=== PATIENT | male | born 1950 | race Hispanic/Latino ===

== ENCOUNTER → 2017-05-29 | Outpatient (CLI) | payer OTHER, MEDICARE ==
[~2017-05-29] MED LIST: AMLO2.5T PO; DULO30CA51 PO; GABA-318 PO; GABA300S PO; IOPAMIDOL-370 100 ML VIAL IV ONE; IOPAMIDOL-370 75 ML VIAL IV ONE; LOSA50TA37 PO; METF500T6 PO
== END | disposition home or self-care (01) ==
LOC: SHCH 07:44
PROVIDERS: ATTEND Internal Medicine Cardiovascular Disease
DX: I70.702 Unspecified atherosclerosis of other type of bypass graft(s) of the extremities, left leg (principal)
CPT/HCPCS: 75635; Q9967 ×2

== ENCOUNTER → 2017-06-11 | Outpatient (CLI) | payer OTHER, MEDICARE ==
[~2017-06-11] MED LIST changes: -IOPAMIDOL-370 100 ML VIAL IV ONE; -IOPAMIDOL-370 75 ML VIAL IV ONE
== END | disposition home or self-care (01) ==
LOC: SHCH 11:32
PROVIDERS: ATTEND Internal Medicine Cardiovascular Disease
DX: G45.8 Other transient cerebral ischemic attacks and related syndromes (principal); R09.89 Other specified symptoms and signs involving the circulatory and respiratory systems
CPT/HCPCS: 93880

== ENCOUNTER → 2017-07-30 | Outpatient (CLI) | payer OTHER, MEDICARE ==
[~2017-07-30] MED LIST changes: +IOPAMIDOL-370 75 ML VIAL IV ONE
== END | disposition home or self-care (01) ==
LOC: RAH 08:23
PROVIDERS: ATTEND Internal Medicine Cardiovascular Disease
DX: I65.23 Occlusion and stenosis of bilateral carotid arteries (principal)
CPT/HCPCS: 70498; Q9967

== ENCOUNTER → 2017-08-21 | Outpatient (CLI) | payer OTHER, MEDICARE ==
[~2017-08-21] VITALS: Ht 160 cm; Wt 72.6 kg
[~2017-08-21] MED LIST changes: -IOPAMIDOL-370 75 ML VIAL IV ONE; +REGADENOSON 0.4 MG/5 ML PF SYG IVP SCH
== END | disposition home or self-care (01) ==
LOC: SHCH 09:24
PROVIDERS: ATTEND Internal Medicine Cardiovascular Disease
DX: I25.10 Atherosclerotic heart disease of native coronary artery without angina pectoris (principal)
CPT/HCPCS: 78452; 93017; 96374; A9500 ×2; J2785

== ENCOUNTER → 2018-10-26 | Outpatient (CLI) | payer OTHER ==
[~2018-10-26] MED LIST changes: -AMLO2.5T PO; +AMLO2.5T4 PO; -DULO30CA51 PO; +DULO30CA52 PO; -GABA-318 PO; +GABA600T10 PO; -LOSA50TA37 PO; +LOSA50TA64 PO; +METF-444 PO; -METF500T6 PO; -REGADENOSON 0.4 MG/5 ML PF SYG IVP SCH
== END | disposition home or self-care (01) ==
LOC: SHCH 13:58 → MERGE 14:00
PROVIDERS: ATTEND Internal Medicine Cardiovascular Disease
DX: I65.23 Occlusion and stenosis of bilateral carotid arteries (principal); I11.9 Hypertensive heart disease without heart failure; R09.89 Other specified symptoms and signs involving the circulatory and respiratory systems
CPT/HCPCS: 93306; 93880

== ENCOUNTER → 2018-11-30 | Outpatient (CLI) | payer OTHER ==
[~2018-11-30] VITALS: Ht 162.6 cm; Wt 72.1 kg
[~2018-11-30] MED LIST changes: +REGADENOSON 0.4 MG/5 ML PF SYG IVP SCH
== END | disposition home or self-care (01) ==
LOC: SHCH 08:20
PROVIDERS: ATTEND Internal Medicine Cardiovascular Disease
DX: I10 Essential (primary) hypertension (principal); I25.89 Other forms of chronic ischemic heart disease; E78.5 Hyperlipidemia, unspecified; E11.9 Type 2 diabetes mellitus without complications; Z79.899 Other long term (current) drug therapy; I65.23 Occlusion and stenosis of bilateral carotid arteries
CPT/HCPCS: 78452; 93017; 96374; A9500 ×2; J2785

== ENCOUNTER 2018-12-08 15:00 | Observation (INO) | payer OTHER, MEDICARE ==
[~2018-12-08] VITALS: Ht 165.1 cm; Wt 72.4 kg
[~2018-12-08 15:00] MED LIST changes: -AMLO2.5T4 PO; -DULO30CA52 PO; -GABA300S PO; -GABA600T10 PO; -METF-444 PO; -REGADENOSON 0.4 MG/5 ML PF SYG IVP SCH
[2019-01-01] MEDS ORDERED: METF-446 PO (14:54)
[2019-01-01] MEDS ORDERED: PREG100C PO (14:56)
--- NOTE | 2019-01-04 12:54 | NUR ---
CALLED [facility] JACOBO AND REPORTED BUN 35, CHIEF TECHNOLOGIST 1.9, WBC 12.2, UA RESULTS WITH PROTEIN >300, RBC 2-5, WBC 2-5, FEW BACTERIA. NEW ORDERS FOR NS AT 125CC AND HOUR AND REPEAT BMP IN AM.
[2019-01-04] MEDS ORDERED: SODIUM CHLORIDE 0.9% 1000ML 1,000 ML IV SCH (13:00)
[2019-01-05 08:22] LABS: CREATININE 1.9 mg/dL (0.5-1.5); POTASSIUM 4.8 mmol/L (3.5-5.1)
[2019-01-05] MEDS ORDERED: FERR325T22 PO (10:19)
[2019-01-26 15:49] VITALS: BP 168/68
[2019-01-26 16:05] LABS: BASOPHILS % (AUTO) 0.5 % (0.0-5.0); HEMATOCRIT 35.7 % (42-54); LYMPHOCYTES % (AUTO) 30.6 % (21.0-51.0); MEAN CORPUSCULAR HEMOGLOBIN 28.9 pg (27.0-33.0); MEAN CORPUSCULAR HGB CONC 33.2 g/dL (32.0-36.0); MONOCYTES % (AUTO) 6.8 % (3.0-13.0); NEUTROPHILS % (AUTO) 59.1 % (40.0-77.0); NUCLEATED RED BLOOD CELLS 0.1 % (0.0-0.19); PLATELET COUNT (AUTO) 187 K/uL (130-400)
[2019-01-26 16:12] LABS: CREATININE 1.7 mg/dL (0.5-1.5); POTASSIUM 4.8 mmol/L (3.5-5.1)
[2019-01-26 16:13] LABS: APPEARANCE,URINE Clear (CLEAR); BILIRUBIN,URINE Negative (NEGATIVE); COLOR,URINE Yellow (YELLOW); GLUCOSE, URINE (UA) Negative (NEGATIVE); KETONES,URINE Negative (NEGATIVE); LEUKOCYTE ESTERASE ,URINE Negative (NEGATIVE); NITRATE,URINE Negative (NEGATIVE); OCCULT BLOOD,URINE Negative (NEGATIVE); PH,URINE 5.5 (5.0-8.0); PROTEIN,URINE 300 mg/dL (NEGATIVE); UROBILINOGEN,URINE 0.2 mg/dL (0.2-1.0)
[2019-01-26 16:13] LABS: INR 0.95 (0.85-1.15)
[2019-01-26 16:35] LABS: BACTERIA,URINE None Seen /HPF (None Seen); MUCUS,URINE Rare LPF (None Seen); RBC,URINE 0-1 /HPF (0-1); SQUAMOUS EPITHELIAL CELL,UR 0-2 /HPF (0-2); WBC,URINE 0-1 /HPF (0-1)
--- NOTE | 2019-01-26 17:30 | NUR ---
ABNORMAL LABS ABNORMAL LABS REPORTED TO DR. WU BUN 29, CREAT 1.7, H/H 11.8/35.7. NO FURTHER ORDERS GIVEN, MAY PROCEED WITH PLANNED PROCEDURE.
[2019-01-27] VITALS (21 sets, daily range): BP systolic 144–205; BP diastolic 65–88
[2019-01-27] MEDS ORDERED: SODIUM CHLORIDE 0.9% 1000ML 1,000 ML IV ONE (07:40)
[2019-01-27] MEDS ORDERED: CEFAZOLIN SODIUM 1 GM VIAL IVP ONE (08:00)
[2019-01-27] MEDS ORDERED: METOCLOPRAMIDE 10 MG/2 ML VIAL ONE (08:43)
[2019-01-27] MEDS ORDERED: CELECOXIB 200 MG CAP ONE (08:43)
[2019-01-27] MEDS ORDERED: ACETAMINOPHEN EXTRA STRENGTH 500 MG TABLET ONE (08:43)
[2019-01-27] MEDS ORDERED: OXYCODONE HCL 10 MG TAB.SR.12H PO ONE (08:44)
[2019-01-27] MEDS ORDERED: DEXAMETHASONE SOD PHOSPHATE 4 MG/ML 5ML VIAL ONE (08:44)
[2019-01-27] MEDS ORDERED: CEFAZOLIN SODIUM 1 GM VIAL ONE (09:30)
[2019-01-27] MEDS ORDERED: TRANEXAMIC ACID 1000MG/10ML IV ONE (09:30)
[2019-01-27] MEDS ORDERED: ROPIVACAINE 0.5% 5MG/ML 30ML IJ ONE (09:41)
[2019-01-27] MEDS ORDERED: TEMAZEPAM 15 MG CAPSULE PO PRN (12:30)
[2019-01-27] MEDS ORDERED: ONDANSETRON HCL 4 MG/2 ML VIAL IVP PRN (12:30)
[2019-01-27] MEDS ORDERED: POTASSIUM CHLORIDE 20 MEQ ERTAB PO PRN (12:30)
[2019-01-27] MEDS ORDERED: DiphenhydrAMINE HCL 50 MG/ML VIAL IVP PRN (12:30)
[2019-01-27] MEDS ORDERED: POTASSIUM CHLORIDE 20MEQ/100ML 100 ML IV PRN (12:30)
[2019-01-27] MEDS ORDERED: LIDOCAINE HCL-MPF 1% 2ML VIAL IV PRN (12:30)
[2019-01-27] MEDS ORDERED: TRAMADOL HCL 50 MG TABLET PO PRN (12:30)
[2019-01-27] MEDS ORDERED: CALCIUM CARBONATE 500 MG TABLET PO PRN (12:30)
[2019-01-27] MEDS: ACETAMINOPHEN EXTRA STRENGTH 500 MG TABLET PO SCH ×2 (12:30→20:55)
[2019-01-27] MEDS ORDERED: POTASSIUM CHLORIDE 10% ELIXIR 20 MEQ/15 ML UDCUP PO PRN (12:30)
[2019-01-27] MEDS ORDERED: OXYCODONE HCL 5 MG TAB PO PRN (12:30)
[2019-01-27] MEDS ORDERED: HYDRALAZINE HCL 20 MG/ML VIAL ONE (13:10)
[2019-01-27] MEDS ORDERED: MEPERIDINE-PF 25 MG/ML SYG ONE (13:25)
--- NOTE | 2019-01-27 13:40 | NUR ---
TRANEXAMIC ACID 1GM IVBP GIVEN IN PACU. Addendum: 01/27/19 at 1341 by JORGE GUSMAN RN RN Amended: Links added.
[2019-01-27] MEDS: CEFAZOLIN SODIUM 1 GM VIAL IVP SCH (18:12)
[2019-01-27] MEDS: SODIUM CHLORIDE 0.9% 1000ML 1,000 ML IV SCH ×2 (18:15→22:04)
[2019-01-27] MEDS: INSULIN HUMULIN R 100 UNIT/ML 3ML SQ SCH ×2 (18:17→20:54)
[2019-01-27] MEDS: FAMOTIDINE 20MG TAB 20 MG TAB PO SCH (20:53)
[2019-01-27] MEDS: CELECOXIB 200 MG CAP PO SCH (20:54)
[2019-01-27] MEDS: ASPIRIN 81MG TAB.CHEW PO SCH (20:54)
[2019-01-27] MEDS: PREGABALIN 100 MG CAPSULE PO SCH (20:54)
[2019-01-27] MEDS ORDERED: PREGABALIN 25 MG CAP PO SCH (21:00)
[2019-01-28] VITALS: BP 163/75
[2019-01-28] MEDS: CEFAZOLIN SODIUM 1 GM VIAL IVP SCH (02:21)
[2019-01-28 04:00] VITALS: BP 159/69
[2019-01-28] MEDS: ACETAMINOPHEN EXTRA STRENGTH 500 MG TABLET PO SCH ×2 (04:45→12:47)
[2019-01-28 04:55] LABS: CREATININE 1.8 mg/dL (0.5-1.5); POTASSIUM 4.8 mmol/L (3.5-5.1)
[2019-01-28] MEDS: INSULIN HUMULIN R 100 UNIT/ML 3ML SQ SCH ×2 (05:48→11:30)
[2019-01-28] MEDS: SODIUM CHLORIDE 0.9% 1000ML 1,000 ML IV SCH (05:48)
[2019-01-28 08:00] VITALS: BP 167/76
[2019-01-28] MEDS: FAMOTIDINE 20MG TAB 20 MG TAB PO SCH (08:47)
[2019-01-28] MEDS: PREGABALIN 100 MG CAPSULE PO SCH (08:47)
[2019-01-28] MEDS: ASPIRIN 81MG TAB.CHEW PO SCH (08:48)
[2019-01-28] MEDS: CELECOXIB 200 MG CAP PO SCH (08:48)
[2019-01-28] MEDS: OXYCODONE HCL 5 MG TAB PO PRN ×3 (08:49→18:42)
[2019-01-28] MEDS ORDERED: METFORMIN HCL 500 MG TAB.SR.24H PO SCH (09:00)
[2019-01-28] MEDS ORDERED: LOSARTAN 100 MG TABLET PO SCH (09:00)
[2019-01-28] MEDS ORDERED: POLYETHYLENE GLYCOL 3350 17 GM POWD.PACK PO SCH (09:00)
[2019-01-28] MEDS ORDERED: FERROUS SULFATE 325 MG TABLET.DR PO SCH (09:00)
[2019-01-28] MEDS ORDERED: TAMSULOSIN HCL 0.4 MG CAP.ER.24H PO SCH (09:00)
--- NOTE | 2019-01-28 10:30 | NUR ---
INITIAL AND REFERRAL MET W PT AND SPOUSE MELLISA WHO LIVES W PT AND WILL PROVIDE TRANSPORT PREVIOUSLY INDP, NO DME, DRIVES, HOME SAFE AND ACCESSIBLE, S/P TKA, ORDER FOR HH AND DME- WKR 3 IN 1, VERBAL/MARYLU SIGNED FOR [facility], REFERRAL SENT Addendum: 01/29/19 at 1929 by CHRISTIANO JORGENSEN RN CM Amended: Links added.
[2019-01-28 11:50] VITALS: BP 171/75
[2019-01-28] MEDS ORDERED: HYDR-4457 PO (13:15)
[2019-01-28] MEDS ORDERED: ASPI-1005 PO (13:15)
--- NOTE | 2019-01-28 16:30 | NUR ---
REC;'D OK FROM [facility] AT 1315; CIERA WHITING TO PT ROOM, NO OTHER NEEDS, Addendum: 01/29/19 at 1931 by CHRISTIANO JORGENSEN RN CM Amended: Links added.
--- NOTE | 2019-01-28 18:35 | NUR ---
DISCHARGE DISCHARGE TEACHING DONE WITH PATIENT AND FAMILY USING TEACHBACK METHOD, VERBALIZED UNDERSTANDING. NO NOTED SOB OR DISTRESS. NEW MEDICATION ADMINISTRATION TEACHING DONE WITH PATIENT, VERBALIZED UNDERSTANDING. PT AWARE OF NEED TO ATTEND DR. WU APPOINTMENT. DRESSING TO KNEE DRY AND INTACT. DRESSING CHANGED PER DR. WU, INCISION IS DRY AND INTACT. DRESSING TEACHING DONE WITH PATIENT, VERBALIZED UNDERSTANDING. IV REMOVED, CATH TIP INTACT. PENDING TO BE TRANSFERRED OUT VIA PRIVATE VEHICLE. REPORT CALLED TO HOME HEALTH.
[2019-01-30] MEDS ORDERED: BISACODYL 10 MG SUPP.RECT RC PRN (12:30)
== END 2019-01-28 19:08 | disposition home or self-care (01) ==
LOC: INTOOBSV 01-27 07:11 → DAHIP 01-27 07:11 → 4AH 01-27 14:05
PROVIDERS: ADMIT Orthopaedic Surgery; ATTEND Orthopaedic Surgery
DX: M12.562 Traumatic arthropathy, left knee (principal); I10 Essential (primary) hypertension; E11.9 Type 2 diabetes mellitus without complications; E78.00 Pure hypercholesterolemia, unspecified; F17.210 Nicotine dependence, cigarettes, uncomplicated; Z96.698 Presence of other orthopedic joint implants; Z79.899 Other long term (current) drug therapy; Z79.01 Long term (current) use of anticoagulants
CPT/HCPCS: 20680; 27447; 36415 ×2; 73562; 80048 ×2; 81001; 82948 ×7; 85025; 85610; 87641; 88300; 88305; 88311; 96372; 96374; 96376 ×2; 97039; 97116 ×2; 97161; 97530 ×2; A4215; A4221; A4222; A4223; A4600; A4649 ×7; A4663; A4930 ×4; C1763; C1776; G0168; G0378 ×30; G8978; G8979; G8980; G8981; G8982; G8983; J0360; J0690 ×4; J1100; J1815; J2175; J2765; J2795; J3490; J7030 ×2

== ENCOUNTER 2019-01-05 07:27 | Day surgery (SDC) | payer OTHER, MEDICARE ==
[2019-01-01 14:10] LABS: BASOPHILS % (AUTO) 0.3 % (0.0-5.0); EOSINOPHILS % (AUTO) 2.2 % (0.0-8.0); HEMATOCRIT 36.3 % (42-54); LYMPHOCYTES % (AUTO) 31.2 % (21.0-51.0); MEAN CORPUSCULAR HEMOGLOBIN 28.2 pg (27.0-33.0); MEAN CORPUSCULAR VOLUME 85.4 fL (79-99); MONOCYTES % (AUTO) 6.4 % (3.0-13.0); NEUTROPHILS % (AUTO) 59.9 % (40.0-77.0); PLATELET COUNT (AUTO) 202 K/uL (130-400); RED BLOOD CELL COUNT(AUTO) 4.25 MIL/uL (4.50-6.20); RED CELL DISTRIBUTION WIDTH 20.6 % (11.0-15.5); WHITE BLOOD COUNT (AUTO) 12.2 K/uL (4.8-10.8)
[2019-01-01 14:12] LABS: APPEARANCE,URINE CLEAR (CLEAR); BILIRUBIN,URINE NEGATIVE (NEGATIVE); COLOR,URINE YELLOW (YELLOW); GLUCOSE, URINE (UA) NEGATIVE (NEGATIVE); KETONES,URINE NEGATIVE (NEGATIVE); LEUKOCYTE ESTERASE ,URINE NEGATIVE (NEGATIVE); NITRATE,URINE NEGATIVE (NEGATIVE); OCCULT BLOOD,URINE NEGATIVE (NEGATIVE); PH,URINE 5.5 (5.0-8.0); PROTEIN,URINE >=300 mg/dL (NEGATIVE); UROBILINOGEN,URINE 0.2 mg/dL (0.2-1.0)
[2019-01-01 14:22] LABS: CREATININE 1.9 mg/dL (0.5-1.5)
[2019-01-01 14:37] LABS: BACTERIA,URINE Few /HPF (None Seen); MUCUS,URINE Few LPF (None Seen)
[2019-01-01 15:18] VITALS: BP 140/69
[2019-01-01 15:26] LABS: INR 0.93 (0.85-1.15); PARTIAL THROMBOPLASTIN TIME 27.2 SEC (26.3-35.5); PROTHROMBIN TIME 9.8 SEC (9.6-11.6)
[~2019-01-05] VITALS: Ht 162.6 cm; Wt 72.0 kg
[2019-01-05] VITALS (17 sets, daily range): BP systolic 114–197; BP diastolic 48–83
[~2019-01-05 07:27] MED LIST changes: +AMLO2.5T4 PO; +METF-446 PO; +PREG100C PO; +SODIUM CHLORIDE 0.9% 500ML 500 ML IV SCH; +iron PO
--- NOTE | 2019-01-05 07:50 | NUR ---
PATIENT ARRIVED PATIENT ARRIVED TO DAY PATIENT WITH SPOUSE (MELLISA). PATIENT AAOX3, RESPIRATIONS UNLABORED, VITAL SIGNS STABLE. PROCEDURE VERIFIED AND CONFIRMED WITH PATIENT. HOSPITAL ROUTINE EXPLAINED TO PATIENT AND PATIENT'S SPOUSE, BOTH VERBALIZED UNDERSTANDING.
[2019-01-05] MEDS ORDERED: SODIUM CHLORIDE 0.9% 1000ML 1,000 ML IV ONE (09:08)
--- NOTE | 2019-01-05 09:50 | NUR ---
INFORMED DR BRENNAN REGARDING PATIENT'S BLOOD PRESSURE BEING IN THE 170S-190S. RECEIVED ORDERS FOR HYDRALAZINE 10MG IV PRN. WILL FOLLOW THROUGH WITH ORDERS AND ADMINISTER HYDRALAZINE NEEDED.
[2019-01-05] MEDS ORDERED: HYDRALAZINE HCL 20 MG/ML VIAL ONE ×3 (09:57→15:52)
--- NOTE | 2019-01-05 10:05 | NUR ---
ADMINISTERED HYDRALAZINE ADMINISTERED HYDRALAZINE 10MG IV PUSH FOR BP 197/81. (PATIENT ASYMPTOMATIC) WILL CONTINUE TO MONITOR FOR EFFECTIVENESS OF MEDICATION.
[2019-01-05] MEDS ORDERED: FERR325T22 PO (10:19)
[2019-01-05] MEDS ORDERED: DOCU100C33 PO (10:19)
[2019-01-05] MEDS ORDERED: AMLO5TAB9 PO (10:20)
[2019-01-05] MEDS ORDERED: HYDRALAZINE HCL 20 MG/ML VIAL IV PRN ×3 (11:30→16:00)
--- NOTE | 2019-01-05 12:50 | NUR ---
CALLED LAURA MCCARTHY INFORMED [facility] REGARDING PATIENT'S BLOOD PRESSURE NOT RESPONDING TO HYDRALAZINE 10MG THAT WAS ADMINISTERED AT 1005. PER [facility], GIVE PATIENT HYDRALAZINE 10MG IV PUSH X 1 DOSE NOW AND CALL HIM BACK IF PATIENT'S BP DOES NOT GO DOWN.
--- NOTE | 2019-01-05 13:10 | NUR ---
HYDRALAZINE 10MG IV PUSH GIVEN DUE TO BLOOD PRESSURE 195/79. WILL CONTINUE TO MONITOR PATIENT'S BLOOD PRESSURE FOR EFFECTIVENESS.
[2019-01-05] MEDS ORDERED: NITROGLYCERIN 5 MG/ML 10 ML VIAL IV ONE (14:05)
[2019-01-05] MEDS ORDERED: HEPARIN SODIUM 1000UNIT/ML 10ML VIAL ONE (14:05)
[2019-01-05] MEDS ORDERED: IOHEXOL 350 MG/ML 100ML INFUS..BTL IV ONE (14:05)
[2019-01-05] MEDS ORDERED: LIDOCAINE HCL 2% 20ML ONE (14:05)
--- NOTE | 2019-01-05 14:45 | NUR ---
PATIENT TRANSFERRED TO CATH PATIENT TAKEN TO [facility] VIA BED BY BERONICA DAVIS. FAMILY MEMBER (SPOUSE) INSTRUCTED TO STAY IN ROOM IN ORDER TO SPEAK TO DR BRENNAN FOLLOWING PROCEDURE.
[2019-01-05] MEDS ORDERED: SODIUM BICARB 50MEQ 50ML VIAL ONE (14:58)
[2019-01-05] MEDS ORDERED: HYDRALAZINE HCL 20 MG/ML VIAL IV ONE (15:00)
[2019-01-05] MEDS ORDERED: SODIUM CHLORIDE 0.9% 1000ML 1,000 ML IV SCH (15:54)
[2019-01-05] MEDS ORDERED: GLUCAGON 1MG KIT 1 MG ML IM PRN (16:00)
[2019-01-05] MEDS ORDERED: DEXTROSE 50%-WATER 50 ML DISP.SYRIN IV PRN (16:00)
[2019-01-05] MEDS ORDERED: INSULIN HUMULIN R 100 UNIT/ML 3ML SQ SCH (16:30)
--- NOTE | 2019-01-05 18:30 | NUR ---
DIET PT TOLERATING DIET WELL, ASSISTING PT.
--- NOTE | 2019-01-05 20:37 | NUR ---
DISCHARGE PT DISCHARGED VIA WHEELCHAIR WITH . PT STABLE. NO COMPLAINTS MADE. CATH SITE TO RIGHT GROIN REMAINS SOFT, DRESSING DRY AND INTACT, NO OOZING NO HEMATOMA NOTED. DISCHARGE INSTRUCTIONS GIVEN TO AND PT EARLIER, VERBALIZED UNDERSTANDING. ALSO DEMONSTRATED TO ON HOW TO MONITOR SITE FOR BLEEDING, HEMATOMA. VERBALIZED UNDERSTANDING.
== END 2019-01-05 20:37 | disposition home or self-care (01) ==
LOC: DAH 07:27
PROVIDERS: ATTEND Internal Medicine Cardiovascular Disease
DX: I65.29 Occlusion and stenosis of unspecified carotid artery (principal); I70.8 Atherosclerosis of other arteries; I77.1 Stricture of artery; I25.10 Atherosclerotic heart disease of native coronary artery without angina pectoris; Z79.84 Long term (current) use of oral hypoglycemic drugs; Z79.899 Other long term (current) drug therapy; I10 Essential (primary) hypertension; E78.5 Hyperlipidemia, unspecified; E11.9 Type 2 diabetes mellitus without complications; Z98.890 Other specified postprocedural states; Z82.49 Family history of ischemic heart disease and other diseases of the circulatory system
CPT/HCPCS: 36223; 36225; 36415 ×2; 71045; 75710; 80048 ×2; 81001; 82948 ×3; 85025; 85610; 85730; 93005; 93458; 96360; 96361; A4215; A4216; A4221; A4222; A4223 ×3; C1760; C1769; C1894; J0360 ×4; J1644; J3490 ×3; J7030; Q9965 ×2; Q9967; 36215

== ENCOUNTER → 2020-03-01 | Outpatient (CLI) | payer OTHER, MEDICARE ==
[~2020-03-01] MED LIST changes: -AMLO2.5T4 PO; +ASPI-1005 PO; +FERR325T22 PO; +HYDR-4457 PO; -SODIUM CHLORIDE 0.9% 500ML 500 ML IV SCH; -iron PO
== END | disposition home or self-care (01) ==
LOC: SHCH 08:49
PROVIDERS: ATTEND Internal Medicine Cardiovascular Disease
DX: I65.23 Occlusion and stenosis of bilateral carotid arteries (principal)
CPT/HCPCS: 93880

== ENCOUNTER 2022-08-01 22:25 | Inpatient (IN) | payer OTHER, MEDICARE ==
[~2022-08-01] VITALS: Ht 160 cm; Wt 71.8 kg
[2022-08-01] MEDS ORDERED: ALBUTEROL 0.083% 2.5 MG/3 ML INH IH ONE (23:00)
[2022-08-01] MEDS ORDERED: SOLU-MEDROL 125MG VIAL IVP ONE (23:00)
[2022-08-01] MEDS ORDERED: IPRATROPIUM/ALBUTEROL SULFATE 3 ML SOLUTION IH ONE ×3 (23:00)
[2022-08-01 23:04] LABS: BASOPHILS % (AUTO) 0.2 % (0.0-5.0); EOSINOPHILS % (AUTO) 12.6 % (0.0-8.0); HEMATOCRIT 21.7 % (42-54); LYMPHOCYTES % (AUTO) 26.9 % (21.0-51.0); MEAN CORPUSCULAR HEMOGLOBIN 25.7 pg (27.0-33.0); MEAN CORPUSCULAR VOLUME 85.8 fL (79-99); MONOCYTES % (AUTO) 8.6 % (3.0-13.0); NEUTROPHILS % (AUTO) 51.4 % (40.0-77.0); PLATELET COUNT (AUTO) 223 K/uL (130-400); RED BLOOD CELL COUNT(AUTO) 2.53 MIL/uL (4.50-6.20); RED CELL DISTRIBUTION WIDTH 16.4 % (11.0-15.5); WHITE BLOOD COUNT (AUTO) 9.6 K/uL (4.8-10.8)
[2022-08-01 23:18] LABS: CREATININE 3.7 mg/dL (0.5-1.5); POTASSIUM 4.2 mmol/L (3.5-5.1)
[2022-08-01 23:20] LABS: INR 0.93 (0.85-1.15); PROTHROMBIN TIME 10.1 SEC (9.6-11.6)
[2022-08-01 23:21] LABS: PARTIAL THROMBOPLASTIN TIME 28.8 SEC (26.3-35.5)
[2022-08-01 23:23] LABS: ALBUMIN 2.8 g/dL (3.5-5.0); B-TYPE NATRIURETIC PEPTIDE 1050 pg/mL (0-100); TOTAL PROTEIN, SERUM 6.9 g/dL (6.0-8.3)
[2022-08-02] VITALS (16 sets, daily range): BP systolic 143–169; BP diastolic 51–81
[2022-08-02 00:46] LABS: APPEARANCE,URINE CLEAR (CLEAR); BILIRUBIN,URINE NEGATIVE (NEGATIVE); COLOR,URINE COLORLESS (YELLOW); GLUCOSE, URINE (UA) 50 mg/dL (NEGATIVE); KETONES,URINE NEGATIVE (NEGATIVE); LEUKOCYTE ESTERASE ,URINE NEGATIVE Leu/uL (NEGATIVE); NITRATE,URINE NEGATIVE (NEGATIVE); OCCULT BLOOD,URINE NEGATIVE (NEGATIVE); PROTEIN,URINE 300 mg/dL (NEGATIVE); UROBILINOGEN,URINE 0.2 mg/dL (0.2-1.0)
[2022-08-02 00:51] LABS: RBC,URINE 0-1 /HPF (0-1); SQUAMOUS EPITHELIAL CELL,UR RARE /HPF (0-2); WBC,URINE 0-1 /HPF (0-1)
[2022-08-02] MEDS ORDERED: LACTULOSE 20 GM/30 ML UDCUP PO PRN (02:30)
[2022-08-02] MEDS ORDERED: IPRATROPIUM 0.5 MG/2.5 ML INH IH PRN (02:30)
[2022-08-02] MEDS ORDERED: ONDANSETRON 4MG INJ IVP PRN (02:30)
[2022-08-02] MEDS ORDERED: TEMAZEPAM 15 MG CAPSULE PO PRN (02:30)
[2022-08-02] MEDS ORDERED: ALBUTEROL 0.083% 2.5 MG/3 ML INH IH PRN (02:30)
[2022-08-02] MEDS ORDERED: LACTATED RINGERS 1000ML 1,000 ML IV SCH (02:30)
[2022-08-02] MEDS ORDERED: ACETAMINOPHEN 650 MG SUPPOSITORY RC PRN (02:30)
[2022-08-02 03:14] LABS: ABG BASE EXCESS -11.4 mmol/L (-2.0-3.0); ABG HCO3 14.2 mmol/L (21.0-28.0); ABG OXYGEN SATURATION 94.5 % (95.0-99.0); ABG PCO2 32 mmHg (35-48)
[2022-08-02] MEDS ORDERED: SODIUM BICARB 8.4% 50ML SYRINGE IVP STA ×2 (03:21→05:36)
[2022-08-02] MEDS: AZITHROMYCIN 500MG+NS 250ML IV SCH ×2 (03:23→09:28)
[2022-08-02 03:24] LABS: CHLORIDE,URINE RANDOM 68 mmol/L (110-250); POTASSIUM,URINE RANDOM 24 mmol/L (25-125); SODIUM,URINE RANDOM 60 mmol/l (40-220)
[2022-08-02] MEDS: CEFTRIAXONE 1G VIAL IVP SCH (03:24)
[2022-08-02] MEDS: PANTOPRAZOLE 40 MG/VIAL IVP SCH ×3 (03:24→20:21)
[2022-08-02] MEDS ORDERED: SODIUM BICARB 8.4% 50ML SYRINGE IVP SCH ×2 (03:25→05:40)
[2022-08-02 03:35] LABS: % IRON SATURATION 5.9 % (30-44)
[2022-08-02] MEDS ORDERED: SODIUM BICARB 50MEQ 50ML VIAL 100 ML ONE (03:55)
[2022-08-02] MEDS ORDERED: GLUCAGON 1MG KIT 1 MG ML IM PRN (04:00)
[2022-08-02] MEDS ORDERED: DEXTROSE 50%-WATER 50 ML DISP.SYRIN IV PRN (04:00)
[2022-08-02 04:55] LABS: CREATININE 3.8 mg/dL (0.5-1.5); MAGNESIUM 1.7 mg/dL (1.80-2.40); POTASSIUM 4.3 mmol/L (3.5-5.1)
[2022-08-02 04:59] LABS: ABG BASE EXCESS -8.9 mmol/L (-2.0-3.0); ABG HCO3 15.9 mmol/L (21.0-28.0); ABG PCO2 32 mmHg (35-48)
[2022-08-02 05:34] LABS: HEMATOCRIT 25.9 % (42-54)
[2022-08-02 06:00] LABS: CREATININE 3.9 mg/dL (0.5-1.5); POTASSIUM 4.4 mmol/L (3.5-5.1)
[2022-08-02] MEDS ORDERED: SODIUM CHLORIDE 3% FOR INHALATION 4 ML/AMP VIAL.NEB IH ONE (06:09)
[2022-08-02] MEDS: IPRATROPIUM 0.5 MG/2.5 ML INH IH SCH ×2 (06:37→11:57)
[2022-08-02] MEDS: ALBUTEROL 0.042% 1.25MG/3ML IH SCH ×2 (06:37→11:53)
[2022-08-02] MEDS: INSULIN HUMULIN R 100 UNIT/ML 3ML SQ SCH ×4 (06:50→21:04)
[2022-08-02] MEDS ORDERED: HYDROCODONE/ACETAMINOPHEN 5/325 MG TAB PO PRN (08:30)
[2022-08-02] MEDS ORDERED: LOSARTAN 50 MG TABLET PO SCH (09:00)
[2022-08-02] MEDS ORDERED: AMLODIPINE 5 MG TAB PO SCH (09:00)
[2022-08-02] MEDS ORDERED: EPOETIN ALFA-EPBX (NON-ESRD) 10,000 UNIT/ML VIAL SQ SCH (09:30)
[2022-08-02] MEDS: PREGABALIN 100 MG CAPSULE PO SCH ×2 (09:31→21:22)
[2022-08-02] MEDS: FERROUS SULFATE 325 MG TABLET.DR PO SCH (09:32)
[2022-08-02] MEDS: PREDNISONE 20 MG TABLET PO SCH (09:32)
[2022-08-02] MEDS: ASPIRIN 81MG CHEW TAB PO SCH ×2 (09:32→20:21)
[2022-08-02] MEDS: FUROSEMIDE 40MG VIAL IV SCH ×2 (10:22→20:20)
[2022-08-02] MEDS ORDERED: FURO20TA4 PO (10:41)
[2022-08-02] MEDS ORDERED: HYDR-4153 PO (10:41)
[2022-08-02] MEDS ORDERED: TAMS-1 PO (10:41)
[2022-08-02] MEDS ORDERED: AMLO-258 PO (10:41)
[2022-08-02 11:25] LABS: HEMATOCRIT 24.9 % (42-54)
[2022-08-02] MEDS: IRON SUCROSE COMPLEX 300 MG in 0.9% NACL 250ML 250 ML IV SCH (12:18)
[2022-08-02] MEDS ORDERED: MAGNESIUM OXIDE 400 MG TABLET PO SCH (16:30)
[2022-08-02] MEDS: TAMSULOSIN HCL 0.4 MG CAP.ER.24H PO SCH (16:46)
[2022-08-02 17:35] LABS: HEMATOCRIT 23.2 % (42-54)
[2022-08-02] MEDS: HYDRALAZINE 25MG TABLET PO SCH (20:20)
[2022-08-02 23:17] LABS: HEMATOCRIT 23.7 % (42-54)
[2022-08-03] VITALS (7 sets, daily range): BP systolic 136–171; BP diastolic 65–85
[2022-08-03 03:58] LABS: BASOPHILS % (AUTO) 0.1 % (0.0-5.0); HEMATOCRIT 22.2 % (42-54); LYMPHOCYTES % (AUTO) 10.6 % (21.0-51.0); MEAN CORPUSCULAR HEMOGLOBIN 26.4 pg (27.0-33.0); MEAN CORPUSCULAR HGB CONC 31.1 g/dL (32.0-36.0); MEAN CORPUSCULAR VOLUME 85.1 fL (79-99); MONOCYTES % (AUTO) 5.5 % (3.0-13.0); NEUTROPHILS % (AUTO) 83.1 % (40.0-77.0); PLATELET COUNT (AUTO) 209 K/uL (130-400); RED BLOOD CELL COUNT(AUTO) 2.61 MIL/uL (4.50-6.20); RED CELL DISTRIBUTION WIDTH 16.2 % (11.0-15.5); WHITE BLOOD COUNT (AUTO) 11.9 K/uL (4.8-10.8)
[2022-08-03 04:16] LABS: CREATININE 3.9 mg/dL (0.5-1.5); MAGNESIUM 1.6 mg/dL (1.80-2.40); PHOSPHORUS 5.2 mg/dL (2.5-4.9); POTASSIUM 4.5 mmol/L (3.5-5.1)
[2022-08-03 04:30] LABS: % IRON SATURATION 100.3 % (30-44)
[2022-08-03] MEDS: CEFTRIAXONE 1G VIAL IVP SCH (05:49)
[2022-08-03] MEDS: INSULIN HUMULIN R 100 UNIT/ML 3ML SQ SCH ×4 (07:05→22:02)
[2022-08-03] MEDS: AZITHROMYCIN 500MG+NS 250ML IV SCH (09:19)
[2022-08-03] MEDS: PANTOPRAZOLE 40 MG/VIAL IVP SCH ×2 (09:19→20:38)
[2022-08-03] MEDS: PREGABALIN 100 MG CAPSULE PO SCH ×2 (09:21→20:37)
[2022-08-03] MEDS: ASPIRIN 81MG CHEW TAB PO SCH (09:21)
[2022-08-03] MEDS: PREDNISONE 20 MG TABLET PO SCH (09:21)
[2022-08-03] MEDS: FERROUS SULFATE 325 MG TABLET.DR PO SCH (09:21)
[2022-08-03] MEDS: AMLODIPINE 5 MG TAB PO SCH (09:21)
[2022-08-03] MEDS: HYDRALAZINE 25MG TABLET PO SCH ×3 (09:21→20:37)
[2022-08-03] MEDS: FUROSEMIDE 40MG VIAL IV SCH ×2 (09:22→22:02)
[2022-08-03] MEDS: IRON SUCROSE COMPLEX 300 MG in 0.9% NACL 250ML 250 ML IV SCH (09:41)
[2022-08-03] MEDS ORDERED: METOLAZONE 2.5 MG TABLET PO SCH (11:30)
[2022-08-03] MEDS ORDERED: COMPOUND IV MISC 1 EACH IVSOLN MISC PRN (11:30)
[2022-08-03] MEDS: TAMSULOSIN HCL 0.4 MG CAP.ER.24H PO SCH (16:55)
[2022-08-03] MEDS: IPRATROPIUM 0.5 MG/2.5 ML INH IH SCH (23:16)
[2022-08-03] MEDS: ALBUTEROL 0.042% 1.25MG/3ML IH SCH (23:16)
[2022-08-04 03:36] VITALS: BP 133/68
[2022-08-04 05:06] LABS: BASOPHILS % (AUTO) 0.1 % (0.0-5.0); HEMATOCRIT 24.5 % (42-54); LYMPHOCYTES % (AUTO) 17.1 % (21.0-51.0); MEAN CORPUSCULAR HGB CONC 32.2 g/dL (32.0-36.0); MEAN CORPUSCULAR VOLUME 83.6 fL (79-99); MONOCYTES % (AUTO) 7.3 % (3.0-13.0); NEUTROPHILS % (AUTO) 74.3 % (40.0-77.0); NUCLEATED RED BLOOD CELLS 0.8 % (0.0-0.19); PLATELET COUNT (AUTO) 221 K/uL (130-400); RED BLOOD CELL COUNT(AUTO) 2.93 MIL/uL (4.50-6.20); RED CELL DISTRIBUTION WIDTH 16.1 % (11.0-15.5); WHITE BLOOD COUNT (AUTO) 11.4 K/uL (4.8-10.8)
[2022-08-04 05:28] LABS: ALBUMIN 2.6 g/dL (3.5-5.0); CREATININE 4.3 mg/dL (0.5-1.5); POTASSIUM 4.1 mmol/L (3.5-5.1); TOTAL PROTEIN, SERUM 6.1 g/dL (6.0-8.3)
[2022-08-04] MEDS: INSULIN HUMULIN R 100 UNIT/ML 3ML SQ SCH ×4 (05:55→21:17)
[2022-08-04] MEDS: CEFTRIAXONE 1G VIAL IVP SCH (06:19)
[2022-08-04 06:37] VITALS: BP 147/77
[2022-08-04] MEDS: ALBUTEROL 0.042% 1.25MG/3ML IH SCH ×4 (06:49→23:33)
[2022-08-04] MEDS: IPRATROPIUM 0.5 MG/2.5 ML INH IH SCH ×4 (06:49→23:33)
[2022-08-04] MEDS: FUROSEMIDE 40MG VIAL IV SCH (08:46)
[2022-08-04] MEDS: PREGABALIN 100 MG CAPSULE PO SCH ×2 (08:46→20:24)
[2022-08-04] MEDS: AZITHROMYCIN 500MG+NS 250ML IV SCH (08:46)
[2022-08-04] MEDS: PREDNISONE 20 MG TABLET PO SCH (08:46)
[2022-08-04] MEDS: HYDRALAZINE 25MG TABLET PO SCH ×3 (08:46→20:24)
[2022-08-04] MEDS: AMLODIPINE 5 MG TAB PO SCH (08:46)
[2022-08-04] MEDS: FERROUS SULFATE 325 MG TABLET.DR PO SCH (08:46)
[2022-08-04] MEDS: PANTOPRAZOLE 40 MG/VIAL IVP SCH ×2 (08:46→20:24)
[2022-08-04] MEDS: IRON SUCROSE COMPLEX 300 MG in 0.9% NACL 250ML 250 ML IV SCH (11:53)
[2022-08-04 12:15] VITALS: BP 144/75
[2022-08-04] MEDS ORDERED: METOLAZONE 2.5 MG TABLET PO SCH (12:30)
[2022-08-04] MEDS: TAMSULOSIN HCL 0.4 MG CAP.ER.24H PO SCH (16:35)
[2022-08-04 16:36] VITALS: BP 150/75
[2022-08-04] MEDS: FUROSEMIDE 40 MG TABLET PO SCH (16:36)
[2022-08-04 18:50] VITALS: BP 164/84
[2022-08-05] VITALS (24 sets, daily range): BP systolic 145–185; BP diastolic 68–90
[2022-08-05 04:51] LABS: INR 0.98 (0.85-1.15); PROTHROMBIN TIME 10.7 SEC (9.6-11.6)
[2022-08-05 05:07] LABS: ALBUMIN 2.5 g/dL (3.5-5.0); CREATININE 4.5 mg/dL (0.5-1.5); POTASSIUM 3.9 mmol/L (3.5-5.1); TOTAL PROTEIN, SERUM 5.9 g/dL (6.0-8.3)
[2022-08-05] MEDS: INSULIN HUMULIN R 100 UNIT/ML 3ML SQ SCH ×4 (06:41→21:00)
[2022-08-05] MEDS: CEFTRIAXONE 1G VIAL IVP SCH (06:42)
[2022-08-05] MEDS: ALBUTEROL 0.042% 1.25MG/3ML IH SCH ×3 (07:11→19:44)
[2022-08-05] MEDS: IPRATROPIUM 0.5 MG/2.5 ML INH IH SCH ×3 (07:11→19:44)
[2022-08-05] MEDS: PREGABALIN 100 MG CAPSULE PO SCH ×2 (10:11→21:12)
[2022-08-05] MEDS: PANTOPRAZOLE 40 MG/VIAL IVP SCH ×2 (10:11→21:12)
[2022-08-05] MEDS: PREDNISONE 20 MG TABLET PO SCH (10:12)
[2022-08-05] MEDS: AZITHROMYCIN 500MG+NS 250ML IV SCH (10:12)
[2022-08-05] MEDS: FERROUS SULFATE 325 MG TABLET.DR PO SCH (10:12)
[2022-08-05] MEDS: HYDRALAZINE 25MG TABLET PO SCH ×3 (10:12→21:13)
[2022-08-05] MEDS: FUROSEMIDE 40 MG TABLET PO SCH ×2 (10:12→17:00)
[2022-08-05] MEDS: AMLODIPINE 5 MG TAB PO SCH (10:12)
[2022-08-05] MEDS: EPOETIN ALFA-EPBX (NON-ESRD) 10,000 UNIT/ML VIAL SQ SCH (10:13)
[2022-08-05] MEDS: IRON SUCROSE COMPLEX 300 MG in 0.9% NACL 250ML 250 ML IV SCH (10:13)
[2022-08-05] MEDS ORDERED: LIDOCAINE HCL 400MG/20ML VIAL ONE (11:56)
[2022-08-05] MEDS ORDERED: HEPARIN 1,000 UNIT VIAL ONE (11:57)
[2022-08-05 16:32] LABS: HEMATOCRIT 25.5 % (42-54)
[2022-08-05 16:46] LABS: ALBUMIN 2.6 g/dL (3.5-5.0); CREATININE 4.4 mg/dL (0.5-1.5)
[2022-08-05] MEDS: TAMSULOSIN HCL 0.4 MG CAP.ER.24H PO SCH (17:00)
[2022-08-05] MEDS: HYDRALAZINE 20MG/ML VIAL IV PRN (18:18)
[2022-08-05] MEDS: HEPARIN 5,000 UNIT VIAL IRRIG NR (18:39)
[2022-08-06] VITALS (19 sets, daily range): BP systolic 135–176; BP diastolic 58–92
[2022-08-06] MEDS: IPRATROPIUM 0.5 MG/2.5 ML INH IH SCH ×5 (01:56→23:17)
[2022-08-06] MEDS: ALBUTEROL 0.042% 1.25MG/3ML IH SCH ×5 (01:57→23:17)
[2022-08-06 02:16] LABS: HEPATITIS B SURFACE ANTIGEN Non-Reactive (Nonreactive)
[2022-08-06 04:01] LABS: ALBUMIN 2.5 g/dL (3.5-5.0); CREATININE 3.3 mg/dL (0.5-1.5); POTASSIUM 3.4 mmol/L (3.5-5.1); TOTAL PROTEIN, SERUM 5.8 g/dL (6.0-8.3)
[2022-08-06] MEDS: CEFTRIAXONE 1G VIAL IVP SCH (06:02)
[2022-08-06] MEDS: INSULIN HUMULIN R 100 UNIT/ML 3ML SQ SCH ×4 (06:03→21:43)
[2022-08-06] MEDS: AMLODIPINE 5 MG TAB PO SCH (09:00)
[2022-08-06 09:15] LABS: HEMATOCRIT 24.4 % (42-54); MEAN CORPUSCULAR HEMOGLOBIN 26.8 pg (27.0-33.0); MEAN CORPUSCULAR HGB CONC 31.6 g/dL (32.0-36.0); NUCLEATED RED BLOOD CELLS 2.4 % (0.0-0.19); RED BLOOD CELL COUNT(AUTO) 2.87 MIL/uL (4.50-6.20); RED CELL DISTRIBUTION WIDTH 16.6 % (11.0-15.5); WHITE BLOOD COUNT (AUTO) 9.7 K/uL (4.8-10.8)
[2022-08-06] MEDS ORDERED: HEPARIN 5,000 UNIT VIAL IV SCH (10:30)
[2022-08-06] MEDS: FERROUS SULFATE 325 MG TABLET.DR PO SCH (13:12)
[2022-08-06] MEDS: AZITHROMYCIN 500MG+NS 250ML IV SCH (13:12)
[2022-08-06] MEDS: PANTOPRAZOLE 40 MG/VIAL IVP SCH ×2 (13:12→21:42)
[2022-08-06] MEDS: PREDNISONE 20 MG TABLET PO SCH (13:13)
[2022-08-06] MEDS: PREGABALIN 100 MG CAPSULE PO SCH ×2 (13:13→21:42)
[2022-08-06] MEDS: TAMSULOSIN HCL 0.4 MG CAP.ER.24H PO SCH (18:30)
[2022-08-06] MEDS: HYDRALAZINE 20MG/ML VIAL IV PRN (22:17)
[2022-08-07] VITALS (20 sets, daily range): BP systolic 137–171; BP diastolic 65–81
[2022-08-07 05:25] LABS: HEMATOCRIT 24.7 % (42-54); MEAN CORPUSCULAR HEMOGLOBIN 27.7 pg (27.0-33.0); MEAN CORPUSCULAR HGB CONC 32.4 g/dL (32.0-36.0); MEAN CORPUSCULAR VOLUME 85.5 fL (79-99); NUCLEATED RED BLOOD CELLS 1.7 % (0.0-0.19); RED BLOOD CELL COUNT(AUTO) 2.89 MIL/uL (4.50-6.20); RED CELL DISTRIBUTION WIDTH 16.5 % (11.0-15.5)
[2022-08-07 05:39] LABS: CREATININE 2.7 mg/dL (0.5-1.5); MAGNESIUM 1.6 mg/dL (1.80-2.40); POTASSIUM 3.4 mmol/L (3.5-5.1)
[2022-08-07] MEDS: INSULIN HUMULIN R 100 UNIT/ML 3ML SQ SCH ×4 (05:55→20:02)
[2022-08-07] MEDS: CEFTRIAXONE 1G VIAL IVP SCH (05:55)
[2022-08-07] MEDS: ALBUTEROL 0.042% 1.25MG/3ML IH SCH ×3 (07:21→19:20)
[2022-08-07] MEDS: IPRATROPIUM 0.5 MG/2.5 ML INH IH SCH ×3 (07:22→19:20)
[2022-08-07] MEDS: PANTOPRAZOLE 40 MG/VIAL IVP SCH ×2 (09:21→20:03)
[2022-08-07] MEDS: AZITHROMYCIN 500MG+NS 250ML IV SCH (09:21)
[2022-08-07] MEDS: PREGABALIN 100 MG CAPSULE PO SCH ×2 (09:21→20:03)
[2022-08-07] MEDS: AMLODIPINE 5 MG TAB PO SCH ×2 (09:21)
[2022-08-07] MEDS: FERROUS SULFATE 325 MG TABLET.DR PO SCH (09:21)
[2022-08-07] MEDS: HEPARIN 5,000 UNIT VIAL IRRIG NR (13:58)
[2022-08-07] MEDS: TAMSULOSIN HCL 0.4 MG CAP.ER.24H PO SCH (17:27)
[2022-08-08] VITALS (27 sets, daily range): BP systolic 129–166; BP diastolic 54–80
[2022-08-08] MEDS: ALBUTEROL 0.042% 1.25MG/3ML IH SCH ×5 (00:03→22:58)
[2022-08-08] MEDS: IPRATROPIUM 0.5 MG/2.5 ML INH IH SCH ×5 (00:03→22:58)
[2022-08-08] MEDS: CEFTRIAXONE 1G VIAL IVP SCH (05:43)
[2022-08-08] MEDS: INSULIN HUMULIN R 100 UNIT/ML 3ML SQ SCH ×4 (06:07→20:37)
[2022-08-08] MEDS: TAMSULOSIN HCL 0.4 MG CAP.ER.24H PO SCH (08:09)
[2022-08-08 09:01] LABS: HEMATOCRIT 28.5 % (42-54); MEAN CORPUSCULAR HEMOGLOBIN 27.3 pg (27.0-33.0); MEAN CORPUSCULAR HGB CONC 30.9 g/dL (32.0-36.0); MEAN CORPUSCULAR VOLUME 88.5 fL (79-99); NUCLEATED RED BLOOD CELLS 0.5 % (0.0-0.19); RED BLOOD CELL COUNT(AUTO) 3.22 MIL/uL (4.50-6.20); RED CELL DISTRIBUTION WIDTH 17.9 % (11.0-15.5); WHITE BLOOD COUNT (AUTO) 9.3 K/uL (4.8-10.8)
[2022-08-08 09:06] LABS: CREATININE 2.8 mg/dL (0.5-1.5); POTASSIUM 3.3 mmol/L (3.5-5.1)
[2022-08-08 09:09] LABS: INR 0.98 (0.85-1.15); PROTHROMBIN TIME 10.7 SEC (9.6-11.6)
[2022-08-08 09:10] LABS: PARTIAL THROMBOPLASTIN TIME 30.8 SEC (26.3-35.5)
[2022-08-08] MEDS: AZITHROMYCIN 500MG+NS 250ML IV SCH (09:13)
[2022-08-08] MEDS: PREGABALIN 100 MG CAPSULE PO SCH ×2 (09:13→20:36)
[2022-08-08] MEDS: AMLODIPINE 5 MG TAB PO SCH ×2 (09:13)
[2022-08-08] MEDS: PANTOPRAZOLE 40 MG/VIAL IVP SCH ×2 (09:13→20:36)
[2022-08-08] MEDS: FERROUS SULFATE 325 MG TABLET.DR PO SCH (09:13)
[2022-08-08] MEDS ORDERED: CEFAZOLIN SODIUM 1 GM VIAL ONE (14:21)
[2022-08-08] MEDS: MAGNESIUM 2GM PREMIX 50ML 50 ML IV SCH (15:56)
[2022-08-08] MEDS ORDERED: MIDAZOLAM HCL 1 MG/ML 2ML VIAL ONE (16:56)
[2022-08-08] MEDS ORDERED: FENTANYL CITRATE PF 50 MCG/1 ML 2ML VIAL ONE ×2 (16:58→17:27)
[2022-08-08] MEDS ORDERED: ROPIVACAINE 0.5% 5MG/ML 30ML IJ ONE (17:00)
[2022-08-08] MEDS ORDERED: LIDOCAINE 2%-EPI 1:200,000 20 ML VIAL IJ ONE (17:00)
[2022-08-08] MEDS ORDERED: PROPOFOL 10 MG/ML 20ML VIAL IV ONE (17:04)
[2022-08-08] MEDS ORDERED: ROCURONIUM 10MG/1ML SYR 10 MG/ML ML ONE (17:18)
[2022-08-08] MEDS ORDERED: CEFAZOLIN SODIUM 1 GM VIAL IRRIG ONE (17:35)
[2022-08-08] MEDS ORDERED: ONDANSETRON 4MG INJ ONE (17:41)
[2022-08-08] MEDS ORDERED: GLYCOPYRROLATE 1 MG/5 ML SYRINGE ONE (18:27)
[2022-08-08] MEDS ORDERED: NEOSTIGMINE 5MG/5ML SYR IV ONE (18:28)
[2022-08-09] VITALS (22 sets, daily range): BP systolic 136–188; BP diastolic 49–86
[2022-08-09] MEDS ORDERED: HYDROCODONE/ACETAMINOPHEN 5/325 MG TAB PO ONE (04:00)
[2022-08-09 04:48] LABS: HEMATOCRIT 27.7 % (42-54); MEAN CORPUSCULAR HEMOGLOBIN 27.3 pg (27.0-33.0); MEAN CORPUSCULAR HGB CONC 30.7 g/dL (32.0-36.0); MEAN CORPUSCULAR VOLUME 89.1 fL (79-99); NUCLEATED RED BLOOD CELLS 0.2 % (0.0-0.19); RED BLOOD CELL COUNT(AUTO) 3.11 MIL/uL (4.50-6.20); RED CELL DISTRIBUTION WIDTH 18.5 % (11.0-15.5); WHITE BLOOD COUNT (AUTO) 11.4 K/uL (4.8-10.8)
[2022-08-09 05:03] LABS: CREATININE 3.1 mg/dL (0.5-1.5); POTASSIUM 3.6 mmol/L (3.5-5.1)
[2022-08-09] MEDS: CEFTRIAXONE 1G VIAL IVP SCH (05:06)
[2022-08-09] MEDS: IPRATROPIUM 0.5 MG/2.5 ML INH IH SCH ×4 (07:08→23:07)
[2022-08-09] MEDS: ALBUTEROL 0.042% 1.25MG/3ML IH SCH ×4 (07:08→23:07)
[2022-08-09] MEDS: INSULIN HUMULIN R 100 UNIT/ML 3ML SQ SCH ×4 (07:16→21:00)
[2022-08-09] MEDS: AZITHROMYCIN 500MG+NS 250ML IV SCH (08:42)
[2022-08-09] MEDS: FERROUS SULFATE 325 MG TABLET.DR PO SCH (08:42)
[2022-08-09] MEDS: PREGABALIN 100 MG CAPSULE PO SCH ×2 (08:42→20:36)
[2022-08-09] MEDS: PANTOPRAZOLE 40 MG/VIAL IVP SCH ×2 (08:42→20:36)
[2022-08-09] MEDS: AMLODIPINE 5 MG TAB PO SCH ×2 (09:00)
[2022-08-09] MEDS ORDERED: ACETAMINOPHEN 325 MG TAB PO PRN ×2 (11:30)
[2022-08-09] MEDS: TAMSULOSIN HCL 0.4 MG CAP.ER.24H PO SCH (17:00)
[2022-08-09] MEDS: HYDRALAZINE 20MG/ML VIAL IV PRN (17:56)
[2022-08-09] MEDS: HEPARIN 5,000 UNIT VIAL IRRIG NR (20:16)
[2022-08-09] MEDS: EPOETIN ALFA-EPBX (NON-ESRD) 10,000 UNIT/ML VIAL SQ SCH (20:36)
[2022-08-09] MEDS: TRAMADOL HCL 50 MG TABLET PO PRN (20:47)
[2022-08-10 03:48] VITALS: BP 146/59
[2022-08-10 05:29] LABS: HEMATOCRIT 26.1 % (42-54); MEAN CORPUSCULAR HEMOGLOBIN 27.4 pg (27.0-33.0); MEAN CORPUSCULAR HGB CONC 31.4 g/dL (32.0-36.0); MEAN CORPUSCULAR VOLUME 87.3 fL (79-99); RED BLOOD CELL COUNT(AUTO) 2.99 MIL/uL (4.50-6.20); RED CELL DISTRIBUTION WIDTH 18.6 % (11.0-15.5); WHITE BLOOD COUNT (AUTO) 11.1 K/uL (4.8-10.8)
[2022-08-10 05:40] LABS: CREATININE 2.5 mg/dL (0.5-1.5); MAGNESIUM 1.7 mg/dL (1.80-2.40); POTASSIUM 3.8 mmol/L (3.5-5.1)
[2022-08-10] MEDS: CEFTRIAXONE 1G VIAL IVP SCH (05:42)
[2022-08-10] MEDS: MAGNESIUM 2GM PREMIX 50ML 50 ML IV SCH (06:49)
[2022-08-10 07:00] VITALS: BP 149/61
[2022-08-10] MEDS: IPRATROPIUM 0.5 MG/2.5 ML INH IH SCH ×2 (07:27→11:47)
[2022-08-10] MEDS: ALBUTEROL 0.042% 1.25MG/3ML IH SCH ×2 (07:27→11:47)
[2022-08-10] MEDS: INSULIN HUMULIN R 100 UNIT/ML 3ML SQ SCH ×3 (07:30→16:30)
[2022-08-10] MEDS ORDERED: MAGNESIUM 2GM PREMIX 50ML 50 ML IV SCH (08:30)
[2022-08-10] MEDS: AMLODIPINE 5 MG TAB PO SCH ×2 (09:00→09:46)
[2022-08-10] MEDS: AZITHROMYCIN 500MG+NS 250ML IV SCH (09:42)
[2022-08-10] MEDS: PANTOPRAZOLE 40 MG/VIAL IVP SCH (09:43)
[2022-08-10] MEDS: PREGABALIN 100 MG CAPSULE PO SCH (09:44)
[2022-08-10] MEDS: FERROUS SULFATE 325 MG TABLET.DR PO SCH (09:45)
[2022-08-10] MEDS: TRAMADOL HCL 50 MG TABLET PO PRN ×2 (09:48→16:11)
[2022-08-10 11:00] VITALS: BP 158/68
[2022-08-10] MEDS ORDERED: ACET-2079 PO (14:49)
[2022-08-10] MEDS ORDERED: FERR324T4 PO (14:49)
[2022-08-10 16:00] VITALS: BP 172/67
[2022-08-10] MEDS: TAMSULOSIN HCL 0.4 MG CAP.ER.24H PO SCH (16:09)
[2022-08-10] MEDS ORDERED: FERROUS SULFATE 325 MG TABLET.DR PO SCH (21:00)
== END 2022-08-10 17:40 | disposition home or self-care (01) | DRG 673 ==
LOC: EDH 22:25 → EDHIP 08-02 02:30 → 2BH 08-02 05:23 → 2DH 08-02 17:30 → 3AH 08-06 04:19
PROVIDERS: ADMIT Internal Medicine Critical Care Medicine; ATTEND Internal Medicine Critical Care Medicine
PROC: 30233N1 Transfusion of Nonautologous Red Blood Cells into Peripheral Vein, Percutaneous Approach (ICD-10-PCS; 2022-08-02)
PROC: 0JH63XZ Insertion of Tunneled Vascular Access Device into Chest Subcutaneous Tissue and Fascia, Percutaneous Approach (ICD-10-PCS; principal; 2022-08-05)
PROC: 02H633Z Insertion of Infusion Device into Right Atrium, Percutaneous Approach (ICD-10-PCS; 2022-08-05)
PROC: B5181ZA Fluoroscopy of Superior Vena Cava using Low Osmolar Contrast, Guidance (ICD-10-PCS; 2022-08-05)
PROC: B548ZZA Ultrasonography of Superior Vena Cava, Guidance (ICD-10-PCS; 2022-08-05)
PROC: 5A1D70Z Performance of Urinary Filtration, Intermittent, Less than 6 Hours Per Day (ICD-10-PCS; 2022-08-05)
PROC: 5A1D70Z Performance of Urinary Filtration, Intermittent, Less than 6 Hours Per Day (ICD-10-PCS; 2022-08-06)
PROC: 5A1D70Z Performance of Urinary Filtration, Intermittent, Less than 6 Hours Per Day (ICD-10-PCS; 2022-08-07)
PROC: 03180ZD Bypass Left Brachial Artery to Upper Arm Vein, Open Approach (ICD-10-PCS; 2022-08-08)
PROC: 5A1D70Z Performance of Urinary Filtration, Intermittent, Less than 6 Hours Per Day (ICD-10-PCS; 2022-08-09)
DX: N17.9 Acute kidney failure, unspecified (principal); J18.9 Pneumonia, unspecified organism; J44.0 Chronic obstructive pulmonary disease with (acute) lower respiratory infection; E87.20 Acidosis, unspecified; I12.0 Hypertensive chronic kidney disease with stage 5 chronic kidney disease or end stage renal disease; Z20.822 Contact with and (suspected) exposure to COVID-19; N18.6 End stage renal disease; E11.22 Type 2 diabetes mellitus with diabetic chronic kidney disease; N41.9 Inflammatory disease of prostate, unspecified; E78.00 Pure hypercholesterolemia, unspecified; D63.1 Anemia in chronic kidney disease; E87.70 Fluid overload, unspecified; F17.200 Nicotine dependence, unspecified, uncomplicated; Z96.653 Presence of artificial knee joint, bilateral; N40.0 Benign prostatic hyperplasia without lower urinary tract symptoms; Z99.2 Dependence on renal dialysis; Z79.899 Other long term (current) drug therapy; R19.5 Other fecal abnormalities
CPT/HCPCS: 36415; 36430; 36558; 36600; 71045; 76770; 77001; 80048; 80051; 80053; 80061; 81001; 82040; 82270; 82330; 82525; 82550; 82565; 82607; 82728; 82746; 82803; 82948; 83010; 83540; 83550; 83615; 83735; 83874; 83880; 84100; 84484; 84520; 84630; 85007; 85014; 85018; 85025; 85027; 85045; 85384; 85610; 85730; 86701; 86704; 86706; 86738; 86850; 86880; 86900; 86901; 86923; 87040; 87340; 87390; 87449; 87635; 87804; 90935; 93005; 93306; 93356; 93971; 94640; 94664; 97039; C1750; C9113; C9803; G0378; J0360; J0456; J0690; J0696; J1644; J1756; J1815; J1940; J2250; J2405; J2704; J2710; J2795; J2930; J3010; J3475; J3490; J7050; P9016

== ENCOUNTER → 2023-09-25 | Outpatient (CLI) | payer MEDICARE ==
[~2023-09-25] MED LIST changes: +AMLO-258 PO; -ASPI-1005 PO; +CHOL500062 PO; +CINA30TA5 PO; +FAMO40TA7 PO; -FERR325T22 PO; -HYDR-4457 PO; +LOSA100T59 PO; -LOSA50TA64 PO; -METF-446 PO; +NIAC-48 PO; -PREG100C PO; +PREG75CA76 PO; +RIVA2.5T PO; +SITA25TA5 PO
[2023-09-25 14:50] LABS: BASOPHILS # (AUTO) 0.02 K/uL (0.00-0.20); BASOPHILS % (AUTO) 0.2 % (0.0-5.0); EOSINOPHILS # (AUTO) 0.77 K/uL (0.00-0.70); HEMATOCRIT 30.1 % (42-54); IMMATURE GRANULOCYTE ABSOLUTE 0.08 K/uL (0-1); LYMPHOCYTES # (AUTO) 4.1 K/uL (1.0-4.8); LYMPHOCYTES % (AUTO) 31.7 % (21.0-51.0); MEAN CORPUSCULAR HEMOGLOBIN 30.7 pg (27.0-33.0); MEAN CORPUSCULAR HGB CONC 29.9 g/dL (32.0-36.0); MEAN CORPUSCULAR VOLUME 102.7 fL (79-99); MONOCYTES # (AUTO) 1.2 K/uL (0.1-1.0); MONOCYTES % (AUTO) 9.3 % (3.0-13.0); NEUTROPHILS # (AUTO) 6.8 K/uL (1.8-7.7); NEUTROPHILS % (AUTO) 52.2 % (40.0-77.0); NUCLEATED RED BLOOD CELLS 0.7 % (0.0-0.19); PLATELET COUNT (AUTO) 292 K/uL (130-400); RED BLOOD CELL COUNT(AUTO) 2.93 MIL/uL (4.50-6.20); RED CELL DISTRIBUTION WIDTH 19.2 % (11.0-15.5); WHITE BLOOD COUNT (AUTO) 12.9 K/uL (4.8-10.8)
[2023-09-25 15:06] LABS: INR <= 0.93 (0.85-1.15); PROTHROMBIN TIME 10.8 SEC (9.6-11.6)
[2023-09-25 15:34] LABS: ALBUMIN 2.9 g/dL (3.5-5.0); BILIRUBIN,TOTAL 0.3 mg/dL (0.2-1.0); CREATININE 4.2 mg/dL (0.5-1.3); POTASSIUM 4.2 mmol/L (3.5-5.1); TOTAL PROTEIN, SERUM 6.8 g/dL (6.0-8.3)
== END | disposition home or self-care (01) ==
LOC: LAB 14:07
PROVIDERS: ATTEND Internal Medicine Gastroenterology
DX: C16.4 Malignant neoplasm of pylorus (principal); K29.40 Chronic atrophic gastritis without bleeding; K31.A12 Gastric intestinal metaplasia without dysplasia, involving the body (corpus)
CPT/HCPCS: 36415; 80053; 82607; 82746; 82941; 85025; 85610; 86255; 86340

== ENCOUNTER 2023-11-19 10:46 | Emergency (ER) | payer MEDICARE ==
[~2023-11-19] VITALS: Ht 157.5 cm; Wt 64.0 kg
[2023-11-19 12:52] VITALS: BP 189/70; PULSE 86; RESP 14; O2SAT 98
== END 2023-11-19 13:00 | disposition home or self-care (01) ==
LOC: EDH 10:46
DX: L76.82 Other postprocedural complications of skin and subcutaneous tissue (principal); E11.9 Type 2 diabetes mellitus without complications; E78.00 Pure hypercholesterolemia, unspecified; I10 Essential (primary) hypertension; F17.200 Nicotine dependence, unspecified, uncomplicated; Z79.899 Other long term (current) drug therapy; Z88.8 Allergy status to other drugs, medicaments and biological substances; Z90.49 Acquired absence of other specified parts of digestive tract; Z96.653 Presence of artificial knee joint, bilateral; Z98.890 Other specified postprocedural states
CPT/HCPCS: 99281